=== PATIENT | female | born 1985 | race Caucasian/White ===

== ENCOUNTER 2016-09-02 19:53 | Emergency (ER) | payer OTHER ==
[~2016-09-02] VITALS: Ht 170.2 cm; Wt 61.4 kg
[2016-09-02 20:17] VITALS: BP 122/83; PULSE 67; RESP 16; O2SAT 100
[2016-09-02 20:58] LABS: APPEARANCE,URINE HAZY (CLEAR,HAZY); COLOR,URINE YELLOW (YELLOW); OCCULT BLOOD,URINE LARGE (NEGATIVE); UROBILINOGEN,URINE NORMAL (NORMAL)
--- NOTE | 2016-09-02 21:21 | ED.REPORT ---
HPI-Abd Pain F Under 40 Date of Service Sep 02, 2016 ED Provider: Dionte Mayorga MD The pt is a 31 y/o female presenting to the ED complaining of abdominal pain. She describes the pain as spreading across her abdomen w/ the pain coming in waves. Eating does not affect the pain. Denies diarrhea, constipation, melena, blood in stools, or heartburn. The pt has had kids in the past. No established history of gallstones. Nursing Notes Stated Complaint: STOMACH PAIN AND BURNING Chief Complaint: Female Abdominal Pain Allergies: Coded Allergies: No Known Allergies (Unverified , 09/02/16) Scheduled Omeprazole (Omeprazole) 20 Mg Capsule.dr 20 MG PO BID General Time Seen by MD: 21:20 Chief Complaint Abdominal pain Hx Obtained From: Patient Arrived By: Walk-in Sudden in Onset?: Yes Onset Occurred: Just prior to arrival Symptom Duration: Intermittent Recent Healthcare: No recent doctor visit, No recent hospitalization Similar Sx Previous: No Past Medical History Past Medical History None reported Past Surgical History None reported Smoking History Never Smoker Social History None reported Ambulatory Status Independent Review of Systems Denies heart burn GI: Reports: Abdominal pain, Denies: Bloody/tarry stool, Constipation, Diarrhea Complete sys rev & neg: except as marked. Physical Exam Initial Vital Signs Vital Signs (First) Date Time Temp Pulse Resp B/P Pulse Ox O2 Delivery O2 Flow Rate FiO2 09/02/16 20:17 36.9 67 16 122/83 100 Room Air Head / Eyes: Atraumatic, Normocephalic, PERRL ENT: Mucous membranes moist, Conjunctiva normal, No scleral icterus Neck: Supple, Non-tender, Full range of motion Extremities: Vascular intact, Neuro intact, No swelling, No tenderness Skin: Warm, Dry, No cyanosis Neurologic: Alert, Oriented, Nonfocal Psychiatric: Mood/affect normal, Behavior normal, Normal thought content General/Constitutional: Awake, Alert Respiratory / Chest: Atraumatic, Breath sounds NL, Breath sounds = bilat, No respiratory distress Cardiovascular: Heart rate NL, Regular rhythm, Heart sounds NL Abdomen: Soft Tenderness/Guarding/Rebound: Positive: Tender epigastric (Mild ) Back: Atraumatic, Inspection NL, Full range of motion Interpretation & Diagnostics Lab Results Interpretation Result Diagram: 09/02/16212109/02/162121 Test 09/02/16 20:41 09/02/16 21:22 Urine Color Yellow (YELLOW) Urine Appearance Hazy (CLEAR,HAZY) Urine pH 6.0 (5.0-8.0) Urine Specific [place] 1.025 (1.003-1.035) Urine Protein Negativemg/dL (NEG,TRACE) Urine Glucose (UA) Negativemg/dL (NEGATIVE) Urine Ketones Negativemg/dL (NEGATIVE) Urine Occult Blood Large (NEGATIVE) Urine Nitrite Negative (NEGATIVE) Urine Bilirubin Negative (NEGATIVE) Urine Urobilinogen Normalmg/dL (NORMAL) Urine Leukocyte Esterase Negative (NEGATIVE) Urine RBC 0-2/hpf (0-2) Urine WBC 0-5/hpf (0-5) Urine Epithelial Cells Moderate/hpf (NONE-MOD) Urine Crystals None seen (NONE SEEN) Urine Bacteria Moderate/hpf (NONE-FEW) Urine Hyaline Casts None/lpf (NONE) Urine Granular Casts None seen (NONE SEEN) Urine Waxy Casts None seen (NONE SEEN) Urine Red Blood Cell Casts None seen (NONE SEEN) Urine White Blood Cell Casts None seen (NONE SEEN) Urine Mucus None seen (None Seen) Urine Trichomonas None seen (NONE SEEN) Urine Yeast None (NONE SEEN) Urinalysis Comment None Urine Culture Reflexed Indicated White Blood Count 5.2th/mm3 (3.8-10.1) Red Blood Count 4.34mil/mm3 (3.90-5.20) Hemoglobin 12.8g/dL (12.0-15.6) Hematocrit 38.4% (35.0-46.0) Mean Corpuscular Volume 88.5fL (81-100) Mean Corpuscular Hemoglobin 29.5pg (27.0-35.0) Mean Corpuscular Hemoglobin Concent 33.3% (32.0-37.0) Red Cell Distribution Width 13.0% (12.3-15.4) Platelet Count 166bil/L (150-400) Neutrophils (%) (Auto) 63.0% (40-74) Lymphocytes (%) (Auto) 25.0% (14-46) Monocytes (%) (Auto) 9.7% (4-12) Eosinophils (%) (Auto) 1.7% (0-5) Basophils (%) (Auto) 0.4% (0-3) Sodium Level 140mEq/L (134-144) Potassium Level 4.0mEq/L (3.5-5.2) Chloride Level 102mEq/L (97-108) Carbon Dioxide Level 25mmol/L (18-29) Blood Urea Nitrogen 10mg/dL (6-20) Creatinine 0.63mg/dL (0.57-1.00) Estimat Glomerular Filtration Rate 158mL/min (>59) Glucose Level 96mg/dL (60-99) Calcium Level 9.6mg/dL (8.5-10.1) Magnesium Level 2.1mg/dL (1.6-2.6) Total Bilirubin 0.4mg/dL (0.0-1.2) Aspartate Amino Transf (AST/SGOT) 19U/L (0-50) Alanine Aminotransferase (ALT/SGPT) 13U/L (0-32) Alkaline Phosphatase 49U/L (25-150) Total Protein 7.1g/dL (6.4-8.4) Albumin 4.5g/dL (3.4-5.0) Lipase 23U/L (13-60) Hold Gibson Top Tube Received (Received) Re-Eval/Medical Decision Med Decision/Clinical Course Med Decision/Clinical Course: 31-year-old female presents with epigastric and right upper quadrant abdominal pain after taking Motrin for a migraine. P and comes and goes in waves and is colicky in character. LFTs are completely normal. White count is likewise normal. Treated empirically with Viscous Xylocaine and Maalox. Begun with omeprazole twice a day. Return if worsening despite treatment. Consider evaluation of gallbladder if enzymes elevated or if pain persists. Re-Evaluation/Progress : Time of Eval: 10:15 Re-Evaluation/Progress Note: Pt rechecked. Informed pt of plan for treatment. Pt understands and agrees with plan for treatment. F/U instructions and RTER warnings given. All questions addressed. Counseled Regarding: Diagnosis, Need for follow-up, When/why to return to ED Discharge & Departure Primary Impression: Abdominal Pain, Epigastric Additional Impression: Gastritis Gastritis type: unspecified gastritis Chronicity: unspecified Gastritis bleeding: presence of bleeding unspecified Qualified Code: K29.70 - Gastritis , unspecified, without bleeding Disposition: Home Discharge Condition All VS Reviewed: Yes Condition: Stable Patient Instructions: Diet for Stomach Ulcers and Gastritis (ED) Additional Instructions: Nonsteroidals such as ibuprofen can cause gastric injury and a single dose. I suspect that is the source of your burning and pain tonight. There are no abnormalities in the lab to suggest gallbladder problems. This does not totally exclude gallbladder problems, but it makes it less likely. Begin omeprazole twice daily for ten days, then daily for the rest of the month.. you may use Maalox if needed additionally. Follow-up with your doctor this week. Call Monday for an appointment. Return here over the weekend if you are worsening despite treatment, if you see blood or black material in vomit or stool. Referrals: Ama Rod (PCP) Scribe Attestation Portions of this note were transcribed by Christopher Wen. I, Dr. Mayorga personally performed the history, physical exam and medical decision-making; I reviewed and confirmed the accuracy of the information in the transcribed note. Signed by : Cesilia Mckinley, 09/02/16 and [id number]. copies to: Ama Rod Christopher W MD Sep 02, 2016 21:20 Christopher Wen Sep 02, 2016 22:45
[2016-09-02 21:33] LABS: BASOPHILS % (AUTO) 0.4 % (0-3); EOSINOPHILS % (AUTO) 1.7 % (0-5); MONOCYTES % (AUTO) 9.7 % (4-12); Mean Corpuscular Hemoglobin 29.5 pg (27.0-35.0); Mean Corpuscular Volume 88.5 fL (81-100); Platelet Count 166 bil/L (150-400)
[2016-09-02] MEDS ORDERED: Alum-Mag Hydrox-Simeth 30 mL Suspension PO ONE (21:50)
[2016-09-02 21:57] LABS: Magnesium 2.1 mg/dL (1.6-2.6)
[2016-09-02] MEDS ORDERED: Pantoprazole 40 mg ER24 Tablet PO ONE (22:10)
[2016-09-02] MEDS ORDERED: OMEP20CA11 PO (22:12)
== END 2016-09-02 22:22 | disposition home or self-care (01) ==
LOC: SED 19:53
DX: R10.13 Epigastric pain (principal); K29.70 Gastritis, unspecified, without bleeding